=== PATIENT | female | born 1945 | race Hispanic/Latino ===

== ENCOUNTER → 2017-11-27 | Outpatient (CLI) | payer OTHER ==
[~2017-11-27] MED LIST: ALEN70TA47 PO; ASPI-555 PO; ATOR10 PO; CITA40TA6 PO; CLON0.5T23 PO; ESOM20CA31 PO; FAMO40TA7 PO; HYDR12.530 PO; LEVO75 PO; LOSA25TA21 PO; METF500T6 PO; METO-408 PO; TRAM50TA4 PO
== END | disposition home or self-care (01) ==
LOC: RAH 12:59
PROVIDERS: ATTEND Family Medicine
DX: Z12.31 Encounter for screening mammogram for malignant neoplasm of breast (principal)
CPT/HCPCS: 77067

== ENCOUNTER → 2018-02-01 | Outpatient (CLI) | payer OTHER ==
[2018-02-01 11:31] LABS: CREATININE 1.7 mg/dL (0.5-1.5); POTASSIUM 5.3 mmol/L (3.5-5.1)
== END | disposition home or self-care (01) ==
LOC: LAB 10:49
PROVIDERS: ATTEND Family Medicine
DX: I12.9 Hypertensive chronic kidney disease with stage 1 through stage 4 chronic kidney disease, or unspecified chronic kidney disease (principal); E11.22 Type 2 diabetes mellitus with diabetic chronic kidney disease; N18.9 Chronic kidney disease, unspecified; E03.9 Hypothyroidism, unspecified; E78.5 Hyperlipidemia, unspecified
CPT/HCPCS: 36415; 80048

== ENCOUNTER → 2018-02-06 | Outpatient (CLI) | payer OTHER ==
[2018-02-06 11:17] LABS: CREATININE 1.5 mg/dL (0.5-1.5); POTASSIUM 5.3 mmol/L (3.5-5.1)
== END | disposition home or self-care (01) ==
LOC: LAB 10:14
PROVIDERS: ATTEND Family Medicine
DX: I12.9 Hypertensive chronic kidney disease with stage 1 through stage 4 chronic kidney disease, or unspecified chronic kidney disease (principal); N18.9 Chronic kidney disease, unspecified
CPT/HCPCS: 36415; 80048

== ENCOUNTER → 2018-10-04 | Outpatient (CLI) | payer OTHER ==
[~2018-10-04] MED LIST changes: +LOSA25TA16 PO; -LOSA25TA21 PO; +METF-444 PO; -METF500T6 PO
== END | disposition home or self-care (01) ==
LOC: SHCH 08:10
PROVIDERS: ATTEND Internal Medicine Cardiovascular Disease
DX: R00.1 Bradycardia, unspecified (principal)
CPT/HCPCS: 93306

== ENCOUNTER → 2018-10-11 | Outpatient (CLI) | payer OTHER | END | disposition home or self-care (01) | LOC: SHCH 12:42 | PROVIDERS: ATTEND Internal Medicine Cardiovascular Disease | DX: I65.23 Occlusion and stenosis of bilateral carotid arteries (principal) | CPT/HCPCS: 93880 ==

== ENCOUNTER → 2018-11-26 | Outpatient (CLI) | payer OTHER ==
[~2018-11-26] MED LIST changes: +ALEN70TA10 PO; -ALEN70TA47 PO; -LOSA25TA16 PO; +LOSA25TA41 PO
[2018-11-26 10:57] LABS: ALBUMIN 3.9 g/dL (3.5-5.0); BILIRUBIN,TOTAL 0.5 mg/dL (0.2-1.0); CREATININE 1.5 mg/dL (0.5-1.5); POTASSIUM 4.3 mmol/L (3.5-5.1); TOTAL PROTEIN, SERUM 7.6 g/dL (6.0-8.3)
== END | disposition home or self-care (01) ==
LOC: LAB 09:37
PROVIDERS: ATTEND Internal Medicine Gastroenterology
DX: R10.30 Lower abdominal pain, unspecified (principal)
CPT/HCPCS: 36415; 80053

== ENCOUNTER → 2018-11-30 | Outpatient (CLI) | payer OTHER ==
[~2018-11-30] MED LIST changes: +IOHEXOL 350 MG/ML 100ML INFUS..BTL IV ONE
== END | disposition home or self-care (01) ==
LOC: RAH 09:25
PROVIDERS: ATTEND Internal Medicine Gastroenterology
DX: K57.90 Diverticulosis of intestine, part unspecified, without perforation or abscess without bleeding (principal); N28.1 Cyst of kidney, acquired; I70.90 Unspecified atherosclerosis; M47.815 Spondylosis without myelopathy or radiculopathy, thoracolumbar region
CPT/HCPCS: 74177; Q9967

== ENCOUNTER → 2018-12-19 | Outpatient (CLI) | payer OTHER ==
[~2018-12-19] MED LIST changes: -IOHEXOL 350 MG/ML 100ML INFUS..BTL IV ONE
== END | disposition home or self-care (01) ==
LOC: RAH 13:32
PROVIDERS: ATTEND Family Medicine
DX: Z12.31 Encounter for screening mammogram for malignant neoplasm of breast (principal)
CPT/HCPCS: 77067

== ENCOUNTER → 2022-08-01 | Outpatient (CLI) | payer OTHER ==
[~2022-08-01] MED LIST changes: -ALEN70TA10 PO; +ALEN70TA80 PO; -ASPI-555 PO; +ASPI-556 PO; +CITA-108 PO; -CITA40TA6 PO
== END | disposition home or self-care (01) ==
LOC: RAH 13:56
PROVIDERS: ATTEND Family Medicine
DX: Z12.31 Encounter for screening mammogram for malignant neoplasm of breast (principal)
CPT/HCPCS: 77067

== ENCOUNTER → 2023-01-26 | Outpatient (CLI) | payer OTHER | END | disposition home or self-care (01) | LOC: RAH 09:38 | PROVIDERS: ATTEND Family Medicine | DX: N60.02 Solitary cyst of left breast (principal); R92.8 Other abnormal and inconclusive findings on diagnostic imaging of breast | CPT/HCPCS: 77066 ==

== ENCOUNTER → 2023-08-07 | Outpatient (CLI) | payer OTHER | END | disposition home or self-care (01) | LOC: RAH 14:59 | PROVIDERS: ATTEND Family Medicine | DX: R92.8 Other abnormal and inconclusive findings on diagnostic imaging of breast (principal) | CPT/HCPCS: 76641 ==

== ENCOUNTER → 2023-09-13 | Outpatient (CLI) | payer OTHER | END | disposition home or self-care (01) | LOC: RAH 11:38 | PROVIDERS: ATTEND Family Medicine | DX: M25.551 Pain in right hip (principal) | CPT/HCPCS: 73502 ==

== ENCOUNTER 2023-11-26 14:13 | Emergency (ER) | payer OTHER ==
[~2023-11-26] VITALS: Ht 149.9 cm; Wt 63.5 kg
[2023-11-26] MEDS ORDERED: HYDROCODONE/ACETAMINOPHEN 5/325 MG TAB PO ONE (15:30)
[2023-11-26] MEDS ORDERED: DEXAMETHASONE SOD PHOSPHATE 4 MG/ML 1ML VIAL IM ONE (15:30)
[2023-11-26 17:54] VITALS: BP 128/86; PULSE 76; RESP 16; O2SAT 99
== END 2023-11-26 18:06 | disposition home or self-care (01) ==
LOC: EDH 14:13
DX: M54.50 Low back pain, unspecified (principal); E11.9 Type 2 diabetes mellitus without complications; Z79.82 Long term (current) use of aspirin; Z79.84 Long term (current) use of oral hypoglycemic drugs; Z79.890 Hormone replacement therapy; Z79.899 Other long term (current) drug therapy; Z90.49 Acquired absence of other specified parts of digestive tract
CPT/HCPCS: 99284; 96372; J1100

== ENCOUNTER 2023-12-04 17:04 | Emergency (ER) | payer OTHER ==
[~2023-12-04] VITALS: Ht 162.6 cm; Wt 65.8 kg
[2023-12-04] MEDS: LACTATED RINGERS 500 ML IV ONE (17:31)
[2023-12-04] MEDS: KETOROLAC 15MG/ML VIAL (15MG/ML) IM ONE (17:47)
[2023-12-04 18:27] LABS: HEMATOCRIT 27.6 % (36-48); MEAN CORPUSCULAR HEMOGLOBIN 26.3 pg (27.0-33.0); MEAN CORPUSCULAR HGB CONC 31.9 g/dL (32.0-36.0); MEAN CORPUSCULAR VOLUME 82.4 fL (79-99); PLATELET COUNT (AUTO) 430 K/uL (130-400); RED BLOOD CELL COUNT(AUTO) 3.35 MIL/uL (4.00-5.50); RED CELL DISTRIBUTION WIDTH 17.8 % (11.0-15.5); WHITE BLOOD COUNT (AUTO) 8.8 K/uL (4.8-10.8)
[2023-12-04 18:34] LABS: BASOPHILS # (AUTO) 0.02 K/uL (0.00-0.20); BASOPHILS % (AUTO) 0.2 % (0.0-5.0); EOSINOPHILS # (AUTO) 0.03 K/uL (0.00-0.70); EOSINOPHILS % (AUTO) 0.3 % (0.0-8.0); IMMATURE GRANULOCYTE ABSOLUTE 0.05 K/uL (0-1); LYMPHOCYTES % (AUTO) 11.8 % (21.0-51.0); MONOCYTES # (AUTO) 0.7 K/uL (0.1-1.0); NEUTROPHILS % (AUTO) 79.1 % (40.0-77.0)
[2023-12-04 18:37] LABS: CREATININE 1.3 mg/dL (0.5-1.5); POTASSIUM 3.2 mmol/L (3.5-5.1)
[2023-12-04 18:42] LABS: ALBUMIN 3.2 g/dL (3.5-5.0); BILIRUBIN,TOTAL 0.3 mg/dL (0.2-1.0); TOTAL PROTEIN, SERUM 6.4 g/dL (6.0-8.3)
[2023-12-04 21:00] VITALS: BP 152/72; PULSE 90; RESP 17; O2SAT 98
[2023-12-04] MEDS: MORPHINE 4 MG SYG IM ONE (22:11)
[2023-12-04] MEDS: KCL 20 MEQ ERTAB PO ONE (22:14)
== END 2023-12-04 22:21 | disposition home or self-care (01) ==
LOC: EDH 17:04
DX: M25.552 Pain in left hip (principal); D64.9 Anemia, unspecified; E87.6 Hypokalemia; E11.9 Type 2 diabetes mellitus without complications; E78.00 Pure hypercholesterolemia, unspecified; I10 Essential (primary) hypertension; Z79.82 Long term (current) use of aspirin; Z79.84 Long term (current) use of oral hypoglycemic drugs; Z79.890 Hormone replacement therapy; Z79.899 Other long term (current) drug therapy
CPT/HCPCS: 99285; 72192; 80053; 83880; 85025; 36415; 73502; 96372; J2270; J1885

== ENCOUNTER → 2024-01-12 | Outpatient (CLI) | payer OTHER ==
[~2024-01-12] MED LIST changes: +DAPA10TA PO; +LEVO75CA5 PO; +OMEP40CA21 PO
== END | disposition home or self-care (01) ==
LOC: RAH 12:14
PROVIDERS: ATTEND Family Medicine
DX: N63.21 Unspecified lump in the left breast, upper outer quadrant (principal)
CPT/HCPCS: 76641; 77066

== ENCOUNTER 2024-05-13 08:15 | Emergency (ER) | payer OTHER ==
[~2024-05-13] VITALS: Ht 149.9 cm; Wt 59.0 kg
[~2024-05-13 08:15] MED LIST changes: -ALEN70TA80 PO; -ASPI-556 PO; -ATOR10 PO; -CLON0.5T23 PO; -ESOM20CA31 PO; -HYDR12.530 PO; -LEVO75 PO; -METF-444 PO; -TRAM50TA4 PO
[2024-05-13 09:28] LABS: BASOPHILS # (AUTO) 0.03 K/uL (0.00-0.20); BASOPHILS % (AUTO) 0.5 % (0.0-5.0); EOSINOPHILS # (AUTO) 0.04 K/uL (0.00-0.70); EOSINOPHILS % (AUTO) 0.7 % (0.0-8.0); HEMATOCRIT 36.6 % (36-48); IMMATURE GRANULOCYTE ABSOLUTE 0.01 K/uL (0-1); LYMPHOCYTES # (AUTO) 1.4 K/uL (1.0-4.8); MEAN CORPUSCULAR HEMOGLOBIN 26.1 pg (27.0-33.0); MEAN CORPUSCULAR VOLUME 81.7 fL (79-99); MONOCYTES # (AUTO) 0.6 K/uL (0.1-1.0); MONOCYTES % (AUTO) 9.8 % (3.0-13.0); NEUTROPHILS # (AUTO) 3.8 K/uL (1.8-7.7); NEUTROPHILS % (AUTO) 64.8 % (40.0-77.0); PLATELET COUNT (AUTO) 195 K/uL (130-400); RED BLOOD CELL COUNT(AUTO) 4.48 MIL/uL (4.00-5.50); RED CELL DISTRIBUTION WIDTH 18.4 % (11.0-15.5); WHITE BLOOD COUNT (AUTO) 5.8 K/uL (4.8-10.8)
[2024-05-13 09:36] LABS: CREATININE 2.1 mg/dL (0.5-1.0); POTASSIUM 3.9 mmol/L (3.5-5.1)
[2024-05-13] MEDS: LIDOCAINE 4% ADH..PATCH TP ONE (09:40)
[2024-05-13] MEDS: MORPHINE 2 MG SYG IVP ONE (09:40)
[2024-05-13] MEDS: ONDANSETRON 4MG INJ IVP ONE ×2 (09:40→16:22)
[2024-05-13] MEDS ORDERED: ONDA-243 PO (15:52)
[2024-05-13] MEDS ORDERED: HYDR-4060 PO (15:52)
[2024-05-13] MEDS ORDERED: VALA10002 PO (15:52)
[2024-05-13] MEDS: VALACYCLOVIR HCL 500 MG TABLET PO ONE (16:22)
[2024-05-13] MEDS: MORPHINE 4 MG SYG IVP ONE (16:23)
[2024-05-13 16:31] VITALS: BP 116/79; PULSE 74; RESP 14; O2SAT 98
== END 2024-05-13 16:44 | disposition home or self-care (01) ==
LOC: EDH 08:15
DX: S20.211A Contusion of right front wall of thorax, initial encounter (principal); B02.9 Zoster without complications; E11.9 Type 2 diabetes mellitus without complications; E78.00 Pure hypercholesterolemia, unspecified; I10 Essential (primary) hypertension; Z79.899 Other long term (current) drug therapy; Z98.890 Other specified postprocedural states; W19.XXXA Unspecified fall, initial encounter; Y93.89 Activity, other specified; Y92.89 Other specified places as the place of occurrence of the external cause; Y99.8 Other external cause status
CPT/HCPCS: 99285; 96374; 71045; 96375; 80048; 85025; 82948; 36415; 73562; 71100; 96376; J2270 ×2; J2405 ×2

== ENCOUNTER → 2025-02-25 | Outpatient (CLI) | payer OTHER ==
[~2025-02-25] MED LIST changes: +HYDR-4060 PO; +IpraTROPium/alBUTERol SULFATE 3 ML SOLUTION IH ONE; -LEVO75CA5 PO; +LEVO75CA6 PO; +ONDA-243 PO; +VALA10002 PO
--- NOTE | 2025-02-25 12:17 | HMCIMG ---
PROCEDURE: MAMMO DX BILATERAL, US BREAST COMPLETE UNILATERAL HISTORY: Breast COMPARISON: 01/12/2024 TECHNIQUE: Bilateral digital diagnostic mammogram with CAD was performed. No additional views were obtained. Left breast ultrasound study was performed. Markers were placed in the region of interest of both breasts. FINDINGS: The breasts are heterogeneously dense, which may obscure small masses. There is no evidence of a dominant mass, or suspicious microcalcification. There is no evidence of nipple retraction or skin thickening. Left breast ultrasound study was performed. No evidence of cystic or hypoechoic mass is seen. There are left axillary lymph nodes with the largest measuring 13 x 6 x 6 mm. IMPRESSION: 1. Stable mammogram. Left axillary lymph nodes. BI-RADS: CATEGORY 2: BENIGN FINDINGS Recommend monthly self breast exam as well as annual clinical examination. A negative x-ray should not delay biopsy if a dominant or clinically suspicious mass is present, since 8-10% of cancers are not identified by mammography. Dense breasts particularly, may obscure an underlying neoplasm. Some of these may be detected clinically and therefore, clinical examination is an essential part of breast evaluation.
== END | disposition home or self-care (01) ==
LOC: RAH 08:45
PROVIDERS: ATTEND Family Medicine
DX: R92.333 Mammographic heterogeneous density, bilateral breasts (principal); N63.21 Unspecified lump in the left breast, upper outer quadrant
CPT/HCPCS: 76641; 77066

== ENCOUNTER → 2025-07-03 | Outpatient (CLI) | payer OTHER ==
[~2025-07-03] MED LIST changes: -IpraTROPium/alBUTERol SULFATE 3 ML SOLUTION IH ONE
[2025-07-03 12:09] LABS: CREATININE 1.7 mg/dL (0.5-1.0); GLOMERULAR FILTR. RATE CALC 30.0 mL/min (>90); UREA NITROGEN, BLOOD 20.0 mg/dL (7-18)
== END | disposition home or self-care (01) ==
LOC: LAB 11:12
PROVIDERS: ATTEND Internal Medicine Gastroenterology
DX: R93.41 Abnormal radiologic findings on diagnostic imaging of renal pelvis, ureter, or bladder (principal)
CPT/HCPCS: 36415; 82565; 84520